=== PATIENT | female | born 1990 | race Caucasian/White ===

== ENCOUNTER 2024-07-16 16:00 | Emergency (ER) | payer OTHER ==
[2024-07-16 16:08] VITALS: BP 135/72; PULSE 83; RESP 18; TEMP 98.9; BMI 26.4
== END 2024-07-16 17:05 | disposition home or self-care (01) ==
LOC: JERFT 16:00
DX: O09.521 Supervision of elderly multigravida, first trimester (principal); Z3A.01 Less than 8 weeks gestation of pregnancy
CPT/HCPCS: 99283-25

== ENCOUNTER 2025-02-28 12:15 | Emergency (ER) | payer OTHER ==
[2025-02-28 12:39] VITALS: BMI 29.5
[2025-02-28 13:13] LABS: ABSOLUTE IMMATURE GRANULOCYTES 0.05 x10^3/uL (0.0-0.031); BASOPHILS # 0.06 x10^3/uL (0.01-0.08); EOSINOPHIL % 1.1 % (0.7-5.8); EOSINOPHILS # 0.09 x10^3/uL (0.04-0.36); MCHC 30.3 g/dl (32.2-35.5); MEAN CELL VOLUME 81.0 fl (79.4-94.8); MEAN PLT VOLUME 9.5 fl (9.4-12.3); MONOCYTE # 0.49 x10^3/uL (0.24-0.86); MONOCYTE % 5.9 % (4.7-12.5); RDW 13.2 % (12.1-16.8)
[2025-02-28 13:20] LABS: INR 0.94 (0.83-1.09); PROTHROMBIN TIME (PATIENT) 10.3 SEC (9.7-13.0)
[2025-02-28 13:22] LABS: ACTIVATED PTT 22.0 SECONDS (25.2-36.5)
[2025-02-28 13:44] LABS: GLUCOSE,RANDOM 65.0 mg/dL (74-106); TOT PROT 7.3 g/dl (6.4-8.2)
[2025-02-28 13:45] LABS: CO2 19.0 mmol/L (21-32)
[2025-02-28 13:46] LABS: ALK PHOS 145.0 U/L (40-150)
[2025-02-28 13:50] LABS: CREATININE 0.95 mg/dL (0.55-1.3); SGOT/AST 24.0 U/L (5-34); SGPT/ALT 6.0 U/L (0-55)
[2025-02-28 14:10] LABS: URINE APPEARANCE CLEAR; URINE BILIRUBIN NEGATIVE (NEGATIVE); URINE COLOR YELLOW; URINE GLUCOSE (UA) NEGATIVE (NEGATIVE); URINE KETONE NEGATIVE (NEGATIVE); URINE LEUK ESTERASE NEGATIVE (NEGATIVE); URINE NITRITE NEGATIVE (NEGATIVE); URINE PROTEIN NEGATIVE (NEGATIVE); URINE UROBILINOGEN 0.2 mg/dL (0.2-1.0)
[2025-02-28] MEDS ORDERED: METOCLOPRAMIDE HCL INJECTION 10 MG/2 ML VIAL ONE (17:20)
[2025-02-28] MEDS: METOCLOPRAMIDE HCL INJECTION 10 MG/2 ML VIAL IVPB ONE (17:20)
[2025-02-28] MEDS: LACTATED RINGERS SOLUTION 1,000 ML IV ONE (17:20)
[2025-02-28 17:31] VITALS: RESP 18; TEMP 98.4
[2025-02-28 17:49] VITALS: BP 134/80; PULSE 86
[2025-03-13] MEDS ORDERED: NIFEdipine E.R. 30 MG TABLET PO ONE (22:04)
[2025-03-15] MEDS ORDERED: NIFEdipine E.R. 30 MG TABLET PO ONE (10:01)
== END 2025-02-28 18:46 | disposition home or self-care (01) ==
LOC: JER 12:15
PROC: 3E033GC Introduction of Other Therapeutic Substance into Peripheral Vein, Percutaneous Approach (ICD-10-PCS; principal; 2025-02-28)
PROC: 3E0337Z Introduction of Electrolytic and Water Balance Substance into Peripheral Vein, Percutaneous Approach (ICD-10-PCS; 2025-02-28)
DX: O09.523 Supervision of elderly multigravida, third trimester (principal); O26.893 Other specified pregnancy related conditions, third trimester; R42 Dizziness and giddiness; R10.9 Unspecified abdominal pain; O16.3 Unspecified maternal hypertension, third trimester; Z3A.36 36 weeks gestation of pregnancy
CPT/HCPCS: 36415; 80053; 81003; 82962; 83605; 83735; 84484; 85025; 85610; 85730; 86850; 86900; 86901; 87086; 93005; 93010; 99285-25